=== PATIENT | female | born 1930 | race Caucasian/White ===

== ENCOUNTER 2016-09-14 11:33 | Emergency (ER) | payer OTHER, MEDICARE ==
[~2016-09-14] VITALS: Ht 157.5 cm; Wt 50.3 kg
[~2016-09-14 11:33] MED LIST: ALPRAZOLAM0.5 MG PO; ASCORBIC ACID500 M3 PO; CENTRUM SILVER1 EAC3 PO; FOSAMAX70 MG PO; METOPROLOL SUCC50 MG PO; OS-CAL 500+D T1 EAC1 PO; VITAMIN D31000 UNI2 PO; VITAMIN E400 UNIT PO; XARELTO20 MG PO
[2016-09-14 12:58] LABS: ADD MIUA? NO; BILIRUBIN NEGATIVE; BLOOD NEGATIVE; COLOR STRAW ((YELLOW)); GLUCOSE (STRIP) NEGATIVE; KETONES NEGATIVE; LEUKOCYTES NEGATIVE; NITRITE NEGATIVE; PROTEIN (STRIP) NEGATIVE; SPECIFIC GRAVITY 1.003 (1.000-1.030); UROBILINOGEN 0.2 MG/DL (0.2-1.0)
[2016-09-14 13:05] LABS: EOSINOPHIL (%) 0.4 % (0-5); HEMATOCRIT 38.9 % (36.0-46.0); IMMATURE GRANULOCYTE (%) 1.1 % (0.0-0.7); IMMATURE GRANULOCYTE COUNT 0.1 K/uL; INSTRUMENT ABS NEUTROPHIL CT 5.5 K/uL; LYMPHOCYTE COUNT 0.9 K/uL (1.0-2.8); MCH 29.6 PG (29.0-34.0); MCHC 33.4 G/DL (30.0-36.0); MCV 88.6 FL (83-99); MEAN PLAT.VOLUME 10.6 uM^3 (9.5-12.4); MONOCYTE COUNT 0.6 K/uL (0-0.8); NEUTROPHIL (%) 77.3 % (45-76); NEUTROPHIL COUNT 5.5 K/uL (1.8-6.4); PLATELET COUNT 210 K/uL (156-360); RBC DIS.WIDTH-CV 14.8 % (11.8-14.6); RBC DIS.WIDTH-SD 47.7 % (39-53); RED BLOOD COUNT 4.39 M/uL (3.80-5.20); WHITE BLOOD COUNT 7.1 K/uL (4.1-10.2)
[2016-09-14 13:11] LABS: CHLORIDE 98 mEq/L (99-109); POTASSIUM 3.9 mEq/L (3.7-5.4); SODIUM 133 mEq/L (136-147)
[2016-09-14 13:12] LABS: GLUCOSE 246 mg/dL (70-99)
[2016-09-14 13:14] LABS: ANION GAP 7 MEQ/L (2-14)
[2016-09-14 13:16] LABS: GFR ESTIMATE (CALCULATED) > 59 mL/min/
[2016-09-14 13:17] LABS: UREA NITROGEN (BUN) 8 mg/dL (9-23)
[2016-09-14 14:51] VITALS: BP 140/98
[2016-09-14] MEDS ORDERED: LOVASTATIN40 MG PO (14:57)
[2016-09-14] MEDS ORDERED: LASIX20 MG PO (14:57)
[2016-09-14] MEDS ORDERED: METOPROLOL SUC100 MG PO (14:58)
[2016-09-14] MEDS ORDERED: TYLENOL EXTRA500 MG PO (14:59)
[2016-09-14] MEDS ORDERED: BUSPAR10 MG PO (14:59)
[2016-09-14] MEDS ORDERED: TYLENOL WITH C1 EACH PO (15:00)
== END 2016-09-14 14:51 | disposition home or self-care (01) ==
LOC: EME 11:33
PROVIDERS: Physician Assistant
DX: M54.16 Radiculopathy, lumbar region (principal); R73.9 Hyperglycemia, unspecified; M79.89 Other specified soft tissue disorders; M79.605 Pain in left leg; Z98.890 Other specified postprocedural states; I48.91 Unspecified atrial fibrillation; Z79.01 Long term (current) use of anticoagulants
CPT/HCPCS: 80048; 81003; 85025; 93970; 99281; 99284

== ENCOUNTER 2016-09-23 21:18 | Emergency (ER) | payer OTHER, MEDICARE ==
[~2016-09-23] VITALS: Ht 157.5 cm; Wt 50.0 kg
[~2016-09-23 21:18] MED LIST changes: +BUSPAR10 MG PO; +LASIX20 MG PO; +LOVASTATIN40 MG PO; +METOPROLOL SUC100 MG PO; +TYLENOL EXTRA500 MG PO; +TYLENOL WITH C1 EACH PO
[2016-09-24 01:10] VITALS: BP 147/99
[2016-10-01 12:19] LABS: POINT-OF-CARE METER ID UU14100415
== END 2016-09-24 01:12 | disposition home or self-care (01) ==
LOC: EME → EDBD 21:18 → EME 21:18
PROVIDERS: Emergency Medicine
DX: M54.9 Dorsalgia, unspecified (principal); Z79.01 Long term (current) use of anticoagulants; Z91.81 History of falling
CPT/HCPCS: 70450; 72131; 74176; 82948; 99281; 99284; J1885

== ENCOUNTER 2016-09-26 14:31 | Inpatient (IN) | payer OTHER, MEDICARE ==
[~2016-09-26] VITALS: Ht 157.5 cm; Wt 50.9 kg
[2016-09-26 15:23] LABS: ADD MIUA? YES; BILIRUBIN NEGATIVE; BLOOD MODERATE; COLOR YELLOW ((YELLOW)); GLUCOSE (STRIP) 150; KETONES 5; LEUKOCYTES NEGATIVE; NITRITE NEGATIVE; PROTEIN (STRIP) 100; SPECIFIC GRAVITY 1.006 (1.000-1.030); UROBILINOGEN 0.2 MG/DL (0.2-1.0)
[2016-09-26 15:29] LABS: BACTERIA RARE /HPF; CALCIUM OXALATE CRYSTALS 2+ /HPF; EPITHELIAL CELLS RARE /HPF; GRANULAR CASTS 0-5 /LPF; HYALINE CASTS 0-5 /LPF; MUCUS NONE SEEN /LPF; RED BLOOD CELLS 0-5 /HPF (0-5); WHITE BLOOD CELLS 0-5 /HPF (0-5)
[2016-09-26 15:40] LABS: EOSINOPHIL (%) 0.1 % (0-5); HEMATOCRIT 45.5 % (36.0-46.0); IMMATURE GRANULOCYTE (%) 0.5 % (0.0-0.7); IMMATURE GRANULOCYTE COUNT 0.1 K/uL; LYMPHOCYTE COUNT 0.8 K/uL (1.0-2.8); MCHC 33.2 G/DL (30.0-36.0); MCV 87.5 FL (83-99); MEAN PLAT.VOLUME 10.1 uM^3 (9.5-12.4); MONOCYTE (%) 4.8 % (3-12); MONOCYTE COUNT 0.6 K/uL (0-0.8); NEUTROPHIL (%) 87.8 % (45-76); PLATELET COUNT 246 K/uL (156-360); RBC DIS.WIDTH-CV 14.6 % (11.8-14.6); RBC DIS.WIDTH-SD 46.9 % (39-53); WHITE BLOOD COUNT 11.4 K/uL (4.1-10.2)
[2016-09-26 15:59] LABS: INTER. NORMALIZED RATIO 1.3; PROTHROMBIN TIME 13.1 (9.2-11.2); PTT 23.4 (25-32)
[2016-09-26 16:00] LABS: CHLORIDE 87 mEq/L (99-109); POTASSIUM 3.9 mEq/L (3.7-5.4); SODIUM 124 mEq/L (136-147)
[2016-09-26 16:01] LABS: MAGNESIUM 1.5 mg/dL (1.3-2.7)
[2016-09-26 16:02] LABS: GLUCOSE 192 mg/dL (70-99)
[2016-09-26 16:04] LABS: ANION GAP 15 MEQ/L (2-14)
[2016-09-26 16:06] LABS: GFR ESTIMATE (CALCULATED) > 59 mL/min/
[2016-09-26 16:07] LABS: UREA NITROGEN (BUN) 8 mg/dL (9-23)
[2016-09-26 16:29] LABS: TROP-I INTERPRETATION POSITIVE; TROPONIN-I 54.29 ng/mL (0.0-0.30)
[2016-09-26] MEDS ORDERED: PERCOCET 5/31 TABLET PO (18:59)
[2016-09-26] MEDS ORDERED: muscle relaxer PO (19:01)
[2016-09-26 20:30] VITALS: BP 127/82
[2016-09-26 20:52] VITALS: BP 127/82
[2016-09-26 21:52] VITALS: BP 118/75
[2016-09-26 21:52] LABS: HEMATOCRIT 43.1 % (36.0-46.0); MCH 28.5 PG (29.0-34.0); MCHC 33.2 G/DL (30.0-36.0); MCV 85.9 FL (83-99); MEAN PLAT.VOLUME 9.9 uM^3 (9.5-12.4); PLATELET COUNT 254 K/uL (156-360); RBC DIS.WIDTH-CV 14.6 % (11.8-14.6); RBC DIS.WIDTH-SD 45.6 % (39-53); RED BLOOD COUNT 5.02 M/uL (3.80-5.20); WHITE BLOOD COUNT 13.2 K/uL (4.1-10.2)
[2016-09-27] VITALS (7 sets, daily range): BP systolic 89–136; BP diastolic 62–80
[2016-09-27 00:07] LABS: CHLORIDE 89 mEq/L (99-109); SODIUM 124 mEq/L (136-147)
[2016-09-27 00:11] LABS: ANION GAP 13 MEQ/L (2-14); TOTAL BILIRUBIN 1.2 mg/dL (0.0-1.0)
[2016-09-27 00:12] LABS: GLUCOSE 108 mg/dL (70-99)
[2016-09-27 00:13] LABS: ALKALINE PHOSPHATASE 70 IU/L (3-129); GFR ESTIMATE (CALCULATED) > 59 mL/min/
[2016-09-27 00:14] LABS: UREA NITROGEN (BUN) 9 mg/dL (9-23)
[2016-09-27 00:15] LABS: DIRECT BILIRUBIN 0.6 mg/dL (0.0-0.3)
[2016-09-27 00:16] LABS: URIC ACID 3.8 mg/dL (3.1-9.2)
[2016-09-27 00:18] LABS: CREATINE KINASE 2791 IU/L (1-294)
[2016-09-27 01:30] LABS: TROP-I INTERPRETATION POSITIVE; TROPONIN-I 141.49 ng/mL (0.0-0.30)
[2016-09-27 04:39] LABS: CHLORIDE 92 mEq/L (99-109); SODIUM 127 mEq/L (136-147)
[2016-09-27 04:40] LABS: GLUCOSE 87 mg/dL (70-99)
[2016-09-27 04:42] LABS: ANION GAP 14 MEQ/L (2-14)
[2016-09-27 04:44] LABS: GFR ESTIMATE (CALCULATED) > 59 mL/min/
[2016-09-27 04:45] LABS: UREA NITROGEN (BUN) 11 mg/dL (9-23)
[2016-09-27 04:58] LABS: TROP-I INTERPRETATION POSITIVE
[2016-09-27 05:04] LABS: TROPONIN-I 119.03 ng/mL (0.0-0.30)
[2016-09-28] VITALS (12 sets, daily range): BP systolic 90–149; BP diastolic 46–405
[2016-09-28 01:55] LABS: EOSINOPHIL (%) 0.2 % (0-5); HEMATOCRIT 36.1 % (36.0-46.0); IMMATURE GRANULOCYTE (%) 0.4 % (0.0-0.7); INSTRUMENT ABS NEUTROPHIL CT 7.1 K/uL; LYMPHOCYTE COUNT 1.1 K/uL (1.0-2.8); MCH 28.4 PG (29.0-34.0); MCHC 33.2 G/DL (30.0-36.0); MCV 85.5 FL (83-99); MEAN PLAT.VOLUME 10.6 uM^3 (9.5-12.4); MONOCYTE (%) 11.6 % (3-12); MONOCYTE COUNT 1.1 K/uL (0-0.8); NEUTROPHIL (%) 76.1 % (45-76); NEUTROPHIL COUNT 7.1 K/uL (1.8-6.4); PLATELET COUNT 209 K/uL (156-360); RBC DIS.WIDTH-CV 14.6 % (11.8-14.6); RBC DIS.WIDTH-SD 45.8 % (39-53); RED BLOOD COUNT 4.22 M/uL (3.80-5.20); WHITE BLOOD COUNT 9.3 K/uL (4.1-10.2)
[2016-09-28 02:03] LABS: CHLORIDE 95 mEq/L (99-109); SODIUM 127 mEq/L (136-147)
[2016-09-28 02:04] LABS: GLUCOSE 104 mg/dL (70-99)
[2016-09-28 02:06] LABS: ANION GAP 9 MEQ/L (2-14)
[2016-09-28 02:08] LABS: GFR ESTIMATE (CALCULATED) > 59 mL/min/
[2016-09-28 02:09] LABS: UREA NITROGEN (BUN) 18 mg/dL (9-23)
[2016-09-29] VITALS (10 sets, daily range): BP systolic 95–158; BP diastolic 65–92
[2016-09-29 05:42] LABS: EOSINOPHIL (%) 1.4 % (0-5); EOSINOPHIL COUNT 0.1 K/uL (0-0.3); HEMATOCRIT 36.9 % (36.0-46.0); IMMATURE GRANULOCYTE (%) 0.3 % (0.0-0.7); INSTRUMENT ABS NEUTROPHIL CT 4.9 K/uL; MCH 28.6 PG (29.0-34.0); MCHC 32.8 G/DL (30.0-36.0); MCV 87.2 FL (83-99); MEAN PLAT.VOLUME 10.4 uM^3 (9.5-12.4); MONOCYTE (%) 13.3 % (3-12); MONOCYTE COUNT 0.9 K/uL (0-0.8); NEUTROPHIL (%) 70.4 % (45-76); NEUTROPHIL COUNT 4.9 K/uL (1.8-6.4); PLATELET COUNT 198 K/uL (156-360); RBC DIS.WIDTH-CV 15.2 % (11.8-14.6); RBC DIS.WIDTH-SD 48.5 % (39-53); RED BLOOD COUNT 4.23 M/uL (3.80-5.20); WHITE BLOOD COUNT 6.9 K/uL (4.1-10.2)
[2016-09-29 06:04] LABS: ANION GAP 9 MEQ/L (2-14); CHLORIDE 99 MEQ/L (99-109); POTASSIUM 3.9 MEQ/L (3.7-5.4); SAMPLE HEMOLYSIS CHECK 0; SAMPLE ICTERIC CHECK 0; SAMPLE LIPEMIA CHECK 0; SODIUM 132 MEQ/L (136-147)
[2016-09-29 06:09] LABS: GFR ESTIMATE (CALCULATED) > 59 mL/min/; UREA NITROGEN (BUN) 16 mg/dL (9-23)
[2016-09-29 06:10] LABS: GLOBULINS 2.7 G/DL (2.3-3.5); GLUCOSE 87 mg/dL (70-99)
[2016-09-30] VITALS (7 sets, daily range): BP systolic 112–127; BP diastolic 66–84
[2016-09-30 05:44] LABS: EOSINOPHIL (%) 1.4 % (0-5); EOSINOPHIL COUNT 0.1 K/uL (0-0.3); HEMATOCRIT 37.8 % (36.0-46.0); IMMATURE GRANULOCYTE (%) 0.4 % (0.0-0.7); INSTRUMENT ABS NEUTROPHIL CT 5.7 K/uL; LYMPHOCYTE COUNT 1.1 K/uL (1.0-2.8); MCHC 32.8 G/DL (30.0-36.0); MCV 88.3 FL (83-99); MEAN PLAT.VOLUME 10.7 uM^3 (9.5-12.4); NEUTROPHIL (%) 71.2 % (45-76); NEUTROPHIL COUNT 5.7 K/uL (1.8-6.4); PLATELET COUNT 227 K/uL (156-360); RBC DIS.WIDTH-CV 15.2 % (11.8-14.6); RBC DIS.WIDTH-SD 48.8 % (39-53); RED BLOOD COUNT 4.28 M/uL (3.80-5.20)
[2016-09-30 06:31] LABS: ANION GAP 10 MEQ/L (2-14); CHLORIDE 98 MEQ/L (99-109); GFR ESTIMATE (CALCULATED) > 59 mL/min/; GLUCOSE 108 mg/dL (70-99); POTASSIUM 4.1 MEQ/L (3.7-5.4); SAMPLE HEMOLYSIS CHECK 0; SAMPLE ICTERIC CHECK 0; SAMPLE LIPEMIA CHECK 0; SODIUM 135 MEQ/L (136-147); UREA NITROGEN (BUN) 15 mg/dL (9-23)
[2016-10-01 03:30] VITALS: BP 121/78
[2016-10-01 07:14] VITALS: BP 122/78
[2016-10-01 11:05] VITALS: BP 146/86
[2016-10-01 13:10] LABS: ALBUMIN 2.71 G/DL (3.6-4.9); ALBUMIN PERCENT 49.3 %; ALPHA-1 PERCENT 5.5 %; ALPHA-2 GLOBULIN 0.78 G/DL (0.45-0.85); ALPHA-2 PERCENT 14.1 %; BETA PERCENT 11.6 %; GAMMA PERCENT 19.5 %
[2016-10-01 15:55] VITALS: BP 150/94
[2016-10-01 16:14] LABS: HEMATOCRIT 38.9 % (36.0-46.0); MCH 32.3 PG (29.0-34.0); MCHC 35.5 G/DL (30.0-36.0); MCV 91.1 FL (83-99); MEAN PLAT.VOLUME 10.8 uM^3 (9.5-12.4); PLATELET COUNT 224 K/uL (156-360); RBC DIS.WIDTH-CV 15.4 % (11.8-14.6); RBC DIS.WIDTH-SD 49.2 % (39-53); RED BLOOD COUNT 4.27 M/uL (3.80-5.20); WHITE BLOOD COUNT 7.2 K/uL (4.1-10.2)
[2016-10-01 16:38] LABS: ANION GAP 6 MEQ/L (2-14); CHLORIDE 95 MEQ/L (99-109); GFR ESTIMATE (CALCULATED) > 59 mL/min/; GLUCOSE 98 mg/dL (70-99); POTASSIUM 4.2 MEQ/L (3.7-5.4); SAMPLE HEMOLYSIS CHECK 0; SAMPLE ICTERIC CHECK 0; SAMPLE LIPEMIA CHECK 0; SODIUM 129 MEQ/L (136-147); UREA NITROGEN (BUN) 12 mg/dL (9-23)
[2016-10-01 19:20] VITALS: BP 119/75
[2016-10-02 00:05] VITALS: BP 118/77
[2016-10-02 04:00] VITALS: BP 123/78
[2016-10-02 06:03] LABS: EOSINOPHIL (%) 2.3 % (0-5); EOSINOPHIL COUNT 0.2 K/uL (0-0.3); HEMATOCRIT 40.5 % (36.0-46.0); IMMATURE GRANULOCYTE (%) 0.3 % (0.0-0.7); INSTRUMENT ABS NEUTROPHIL CT 4.6 K/uL; LYMPHOCYTE COUNT 1.3 K/uL (1.0-2.8); MCH 28.4 PG (29.0-34.0); MCHC 32.1 G/DL (30.0-36.0); MCV 88.4 FL (83-99); MEAN PLAT.VOLUME 10.6 uM^3 (9.5-12.4); MONOCYTE COUNT 0.8 K/uL (0-0.8); NEUTROPHIL (%) 66.3 % (45-76); NEUTROPHIL COUNT 4.6 K/uL (1.8-6.4); PLATELET COUNT 235 K/uL (156-360); RBC DIS.WIDTH-CV 15.1 % (11.8-14.6); RED BLOOD COUNT 4.58 M/uL (3.80-5.20); WHITE BLOOD COUNT 6.9 K/uL (4.1-10.2)
[2016-10-02 07:14] VITALS: BP 120/70
[2016-10-02] MEDS ORDERED: ASPIR-LOW81 MG PO (10:57)
[2016-10-02] MEDS ORDERED: LOPRESSOR100 M1 PO (10:59)
[2016-10-02] MEDS ORDERED: XARELTO15 MG PO (10:59)
== END 2016-10-02 14:09 | DRG 281 ==
LOC: EME 14:31 → 4EAST 19:08 → EDOF 19:08 → 4EAST 20:37
PROVIDERS: Emergency Medicine; Hospitalist; Internal Medicine Nephrology; Physician Assistant; Student in an Organized Health Care Education/Training Program
DX: I21.4 Non-ST elevation (NSTEMI) myocardial infarction (principal); E46 Unspecified protein-calorie malnutrition; I48.2 Chronic atrial fibrillation; S32.029A Unspecified fracture of second lumbar vertebra, initial encounter for closed fracture; X58.XXXA Exposure to other specified factors, initial encounter; S32.019A Unspecified fracture of first lumbar vertebra, initial encounter for closed fracture; E87.2 Acidosis; E87.1 Hypo-osmolality and hyponatremia; M41.9 Scoliosis, unspecified; D25.9 Leiomyoma of uterus, unspecified; M54.16 Radiculopathy, lumbar region; F41.9 Anxiety disorder, unspecified; K76.0 Fatty (change of) liver, not elsewhere classified; R55 Syncope and collapse; I25.10 Atherosclerotic heart disease of native coronary artery without angina pectoris; E78.5 Hyperlipidemia, unspecified; R32 Unspecified urinary incontinence; I10 Essential (primary) hypertension; K21.9 Gastro-esophageal reflux disease without esophagitis; R74.0 Nonspecific elevation of levels of transaminase and lactic acid dehydrogenase [LDH]; N94.89 Other specified conditions associated with female genital organs and menstrual cycle; M54.5 Low back pain; R06.00 Dyspnea, unspecified; Y92.009 Unspecified place in unspecified non-institutional (private) residence as the place of occurrence of the external cause; R11.0 Nausea; K59.03 Drug induced constipation; Z79.899 Other long term (current) drug therapy; Z74.01 Bed confinement status; Z82.49 Family history of ischemic heart disease and other diseases of the circulatory system; Z80.7 Family history of other malignant neoplasms of lymphoid, hematopoietic and related tissues; Z80.0 Family history of malignant neoplasm of digestive organs; Z68.25 Body mass index [BMI] 25.0-25.9, adult; Z79.01 Long term (current) use of anticoagulants; Y93.89 Activity, other specified
CPT/HCPCS: 70450; 71010; 72131; 74176; 76705; 80048; 80053; 81003; 82248; 82436; 82550 91; 82948; 83605; 83735; 83883 90; 83930; 83935; 84133; 84165; 84295; 84300; 84443; 84484; 84550; 85025; 85027; 85610; 85730; 87040; 93005; 93306; 94799; 97530 GO; 99281; 99284; 99285; C1769; C1887; J1644; J1885; J2060; J2270; J2310; J2405; J7030; J7040; J7050

== ENCOUNTER 2016-11-29 12:40 | Inpatient (IN) | payer OTHER, MEDICARE ==
[~2016-11-29] VITALS: Ht 157.5 cm; Wt 49.4 kg
[~2016-11-29 12:40] MED LIST changes: +ASPIR-LOW81 MG PO; +LOPRESSOR100 M1 PO; +PERCOCET 5/31 TABLET PO; +XARELTO15 MG PO; +muscle relaxer PO
[2016-11-29 14:23] LABS: ADD MIUA? NO; BILIRUBIN NEGATIVE; BLOOD NEGATIVE; COLOR STRAW ((YELLOW)); GLUCOSE (STRIP) NEGATIVE; KETONES NEGATIVE; LEUKOCYTES NEGATIVE; NITRITE NEGATIVE; PROTEIN (STRIP) NEGATIVE; SPECIFIC GRAVITY 1.003 (1.000-1.030); UROBILINOGEN 0.2 MG/DL (0.2-1.0)
[2016-11-29 14:25] LABS: HEMATOCRIT 42.3 % (36.0-46.0); MCH 28.7 PG (29.0-34.0); MCHC 33.3 G/DL (30.0-36.0); MCV 86.2 FL (83-99); MEAN PLAT.VOLUME 10.1 uM^3 (9.5-12.4); PLATELET COUNT 234 K/uL (156-360); RBC DIS.WIDTH-CV 14.5 % (11.8-14.6); RBC DIS.WIDTH-SD 45.5 % (39-53); RED BLOOD COUNT 4.91 M/uL (3.80-5.20); WHITE BLOOD COUNT 5.9 K/uL (4.1-10.2)
[2016-11-29 14:34] LABS: CHLORIDE 93 mEq/L (99-109); POTASSIUM 3.7 mEq/L (3.7-5.4); SODIUM 130 mEq/L (136-147)
[2016-11-29 14:35] LABS: GLUCOSE 100 mg/dL (70-99)
[2016-11-29 14:37] LABS: ANION GAP 12 MEQ/L (2-14)
[2016-11-29 14:39] LABS: GFR ESTIMATE (CALCULATED) > 59 mL/min/
[2016-11-29 14:40] LABS: UREA NITROGEN (BUN) 12 mg/dL (9-23)
[2016-11-29 14:46] LABS: TROP-I INTERPRETATION NEGATIVE; TROPONIN-I 0.02 ng/mL (0.0-0.30)
[2016-11-29 18:09] VITALS: BP 135/86
[2016-11-29 19:41] VITALS: BP 112/70
[2016-11-29 23:45] VITALS: BP 113/72
[2016-11-30 03:35] VITALS: BP 127/83
[2016-11-30 07:11] LABS: ANION GAP 10 MEQ/L (2-14); CHLORIDE 94 MEQ/L (99-109); GFR ESTIMATE (CALCULATED) > 59 mL/min/; GLUCOSE 79 mg/dL (70-99); POTASSIUM 3.4 MEQ/L (3.7-5.4); SAMPLE HEMOLYSIS CHECK 0; SAMPLE ICTERIC CHECK 0; SAMPLE LIPEMIA CHECK 0; SODIUM 135 MEQ/L (136-147); UREA NITROGEN (BUN) 12 mg/dL (9-23)
[2016-11-30 07:48] VITALS: BP 138/93
[2016-11-30 11:44] VITALS: BP 114/67
[2016-11-30 15:56] VITALS: BP 127/84
[2016-11-30 20:10] VITALS: BP 117/77
[2016-12-01 00:32] VITALS: BP 120/78
[2016-12-01 03:59] VITALS: BP 116/71
[2016-12-01 07:47] VITALS: BP 126/76
[2016-12-01 12:00] VITALS: BP 125/79
[2016-12-01 13:23] LABS: ANION GAP 6 MEQ/L (2-14); CHLORIDE 91 MEQ/L (99-109); GFR ESTIMATE (CALCULATED) > 59 mL/min/; SAMPLE HEMOLYSIS CHECK 0; SAMPLE ICTERIC CHECK 0; SAMPLE LIPEMIA CHECK 0; SODIUM 131 MEQ/L (136-147); UREA NITROGEN (BUN) 12 mg/dL (9-23)
[2016-12-01 13:26] LABS: GLUCOSE 106 mg/dL (70-99); POTASSIUM 4.3 MEQ/L (3.7-5.4)
[2016-12-01] MEDS ORDERED: FUROSEMIDE40 MG PO (14:40)
[2016-12-01] MEDS ORDERED: LASIX20 MG PO (14:44)
[2016-12-01 15:49] VITALS: BP 115/75
[2016-12-01] MEDS ORDERED: KLOR-CON SPRIN10 MEQ PO (16:02)
== END 2016-12-01 17:39 | disposition home or self-care (01) | DRG 292 ==
LOC: EME 12:40 → EDOF 15:42 → ENRESERV 15:43 → 5SOUTH 17:55
PROVIDERS: Hospitalist; Physician Assistant
DX: I50.32 Chronic diastolic (congestive) heart failure (principal); I48.2 Chronic atrial fibrillation; I25.10 Atherosclerotic heart disease of native coronary artery without angina pectoris; M54.16 Radiculopathy, lumbar region; I70.0 Atherosclerosis of aorta; E78.5 Hyperlipidemia, unspecified; I27.2 Other secondary pulmonary hypertension; I11.0 Hypertensive heart disease with heart failure; J44.9 Chronic obstructive pulmonary disease, unspecified; I05.9 Rheumatic mitral valve disease, unspecified; M54.17 Radiculopathy, lumbosacral region; J98.11 Atelectasis; Z79.01 Long term (current) use of anticoagulants; Z82.49 Family history of ischemic heart disease and other diseases of the circulatory system; I25.2 Old myocardial infarction; R74.8 Abnormal levels of other serum enzymes
CPT/HCPCS: 71010; 71020; 80048; 81003; 83880; 84484; 85027; 93005; 99281; 99285; J1940